=== PATIENT | female | born 1945 | race Caucasian/White ===

== ENCOUNTER 2022-12-20 00:01 | Inpatient (IN) | payer MEDICARE, OTHER ==
[~2022-12-20] VITALS: Ht 157.5 cm; Wt 93.0 kg
[2022-12-20] MEDS ORDERED: IV NORMAL SALINE 1000 ML BAG IV ONE (00:30)
[2022-12-20 00:53] LABS: HEMATOCRIT 40.5 % (31.2-41.9); MEAN CORPUSCULAR HEMOGLOBIN 25.6 uug (24.7-32.8); PLATELET COUNT (AUTO) 376 K/uL (179-408)
[2022-12-20 00:58] LABS: CREATININE 0.6 mg/dL (0.6-1.3); POTASSIUM 4.2 mmol/L (3.5-5.1)
[2022-12-20 01:03] LABS: BILIRUBIN,DIRECT 0.3 mg/dL (0.0-0.2); BILIRUBIN,TOTAL 0.9 mg/dL (0.2-1.0); TOTAL PROTEIN, SERUM 6.9 g/dL (6.4-8.2)
[2022-12-20 01:46] LABS: *BILIRUBIN,URIN NEGATIVE (NEGATIVE); *BLOOD, URINE 3+ (NEGATIVE); *CLARITY,URINE CLOUDY (CLEAR); *COLOR,URINE DARK YELLOW (YELLOW); *KETONES,URINE NEGATIVE (NEGATIVE); *UROBILINOGEN,URINE 0.2 E.U./dl (NORMAL); LEUKOCYTE ESTERASE ,URINE 3+ (NEGATIVE); NITRITE, URINE NEGATIVE (NEGATIVE); UGLUCOSE NEGATIVE (NEGATIVE)
[2022-12-20 01:50] LABS: BACTERIA,URINE MODERATE /HPF (NONE SEEN); SQUAMOUS EPITHELIAL CELL,UR FEW /HPF (NONE SEEN)
[2022-12-20] MEDS ORDERED: MAGNESIUM SULFATE/D5W 100 ML ONE ×2 (04:00→04:23)
[2022-12-20] MEDS: MAGNESIUM SULFATE/D5W 100 ML IV SCH ×2 (04:06→04:35)
[2022-12-20] MEDS ORDERED: DIPH25TA62 PO (05:06)
[2022-12-20] MEDS ORDERED: DOCU100T2 PO ×3 (05:07→05:10)
[2022-12-20] MEDS ORDERED: APIX2.5T PO (05:11)
[2022-12-20] MEDS ORDERED: HYDR-894 PO (05:12)
[2022-12-20] MEDS ORDERED: HYDR-3972 PO (05:13)
[2022-12-20] MEDS ORDERED: LEVO125T8 PO (05:19)
[2022-12-20] MEDS ORDERED: LIDO30AD10 TD (05:23)
[2022-12-20] MEDS ORDERED: LOSA50TA39 PO (05:24)
[2022-12-20] MEDS ORDERED: METO25TA6 PO (05:25)
[2022-12-20] MEDS ORDERED: MULT-213 PO (05:27)
[2022-12-20] MEDS ORDERED: ONDANSETRON 4 MG/2 ML VIAL ONE (05:27)
[2022-12-20] MEDS ORDERED: HYDR-3980 PO (05:28)
[2022-12-20] MEDS ORDERED: HYDROMORPHONE 1 MG/1 ML DISP.SYRIN ONE (05:28)
[2022-12-20] MEDS ORDERED: PIPERACILLIN/TAZO 4.5 GM VIAL IV ONE (05:28)
[2022-12-20] MEDS ORDERED: HYDROMORPHONE 1 MG/1 ML DISP.SYRIN IV ONE (05:30)
[2022-12-20] MEDS ORDERED: ONDANSETRON 4 MG/2 ML VIAL IV ONE (05:30)
[2022-12-20] MEDS ORDERED: PANT40TA49 PO ×2 (05:30)
[2022-12-20] MEDS ORDERED: BUDE10.22 IH (05:31)
[2022-12-20] MEDS ORDERED: TUBE5VIA2 ID (05:33)
[2022-12-20] MEDS ORDERED: PIPERACILLIN SODIUM/TAZOBACTAM 4.5 G in IV DEXTROSE 5% 50 ML IV SCH (06:00)
[2022-12-20] MEDS ORDERED: MAGNESIUM HYDROXIDE 30 ML LIQUID UDC PO PRN (07:00)
[2022-12-20] MEDS ORDERED: ACETAMINOPHEN 325 MG TABLET PO PRN (07:00)
[2022-12-20] MEDS ORDERED: ONDANSETRON 4 MG/2 ML VIAL IV PRN (07:00)
[2022-12-20] MEDS ORDERED: REMEDY ESSENTIAL ZINC PASTE 113 GM TP PRN (07:00)
[2022-12-20] MEDS ORDERED: FLEET ENEMA 133 ML BOTTLE RC ONE (07:00)
[2022-12-20] MEDS: CIPROFLOXACIN IV 400 MG in PREMIXED 1 EACH IV SCH ×2 (10:42→21:07)
[2022-12-20] MEDS: PANTOPRAZOLE SODIUM 40 MG TABLET.DR PO SCH (10:42)
[2022-12-20] MEDS: HYDROCODONE/APAP 5-325MG TABLET PO PRN ×2 (10:43→15:38)
[2022-12-20 11:00] VITALS: BP 135/47
[2022-12-20] MEDS: IV NS 1000 ML 1,000 ML IV PRN (11:05)
[2022-12-20] MEDS: LEVOTHYROXINE SODIUM 125 MCG TABLET PO SCH (12:14)
[2022-12-20] MEDS: LOSARTAN POTASSIUM 50 MG TABLET PO SCH (12:14)
[2022-12-20] MEDS: METOPROLOL TARTRATE 25 MG TABLET PO SCH ×2 (12:14→20:21)
[2022-12-20] MEDS: DOCUSATE SODIUM 100 MG CAPSULE PO SCH ×2 (12:14→20:21)
[2022-12-20] MEDS: MULTIVITAMINS,THERAPEUTIC TABLET PO SCH (12:14)
[2022-12-20] MEDS: APIXABAN 2.5 MG TABLET PO SCH ×2 (12:15→20:25)
[2022-12-20] MEDS: METRONIDAZOLE 500 MG/NS 100ML 500 MG in PREMIXED 1 EACH IV SCH ×2 (13:16→22:16)
[2022-12-20 16:36] VITALS: BP 122/60
[2022-12-20] MEDS: MORPHINE SULFATE 2 MG/1 ML DISP.SYRIN IV PRN (20:45)
[2022-12-20 20:49] VITALS: BP 173/63
[2022-12-21] MEDS: HYDROCODONE/APAP 5-325MG TABLET PO PRN ×4 (00:04→23:44)
[2022-12-21] MEDS ORDERED: methylPREDNISolone SOD SUCC 125 MG/2 ML VIAL IV ONE (03:30)
[2022-12-21] MEDS ORDERED: FAMOTIDINE. 20 MG/2 ML VIAL IV ONE (03:30)
[2022-12-21] MEDS ORDERED: diphenhydrAMINE 50 MG/1 ML VIAL IV ONE (03:30)
[2022-12-21 04:49] VITALS: BP 126/62
[2022-12-21] MEDS: LEVOTHYROXINE SODIUM 125 MCG TABLET PO SCH (06:09)
[2022-12-21] MEDS: PANTOPRAZOLE SODIUM 40 MG TABLET.DR PO SCH (06:09)
[2022-12-21] MEDS: IV NS 1000 ML 1,000 ML IV PRN ×2 (06:26→06:27)
[2022-12-21] MEDS ORDERED: PIPERACILLIN SODIUM/TAZOBACTAM 3.375 G in IV DEXTROSE 5% 50 ML IV SCH ×5 (06:45→14:00)
[2022-12-21 07:31] LABS: HEMATOCRIT 41.6 % (31.2-41.9); MEAN CORPUSCULAR HEMOGLOBIN 25.5 uug (24.7-32.8); MEAN CORPUSCULAR VOLUME 79.4 fL (75.5-95.3); PLATELET COUNT (AUTO) 338 K/uL (179-408)
[2022-12-21 07:44] LABS: CARBON DIOXIDE 29 mmol/L (21-32); CHLORIDE 102 mmol/L (98-107); CREATININE 0.7 mg/dL (0.6-1.3); GLUCOSE 143 mg/dL (74-106); PHOSPHOROUS 2.9 mg/dL (2.5-4.9); POTASSIUM 4.7 mmol/L (3.5-5.1); UREA NITROGEN, BLOOD 13 mg/dL (7-18)
[2022-12-21] MEDS: MULTIVITAMINS,THERAPEUTIC TABLET PO SCH (08:03)
[2022-12-21] MEDS: LOSARTAN POTASSIUM 50 MG TABLET PO SCH (08:04)
[2022-12-21] MEDS: DOCUSATE SODIUM 100 MG CAPSULE PO SCH ×2 (08:04→20:14)
[2022-12-21] MEDS: APIXABAN 2.5 MG TABLET PO SCH ×2 (08:04→20:14)
[2022-12-21] MEDS: METOPROLOL TARTRATE 25 MG TABLET PO SCH ×2 (08:04→16:49)
[2022-12-21] MEDS: LIDOCAINE 5% PATCH TD SCH ×2 (11:13→21:00)
[2022-12-21 11:49] VITALS: BP 119/80
[2022-12-21 11:56] VITALS: BP 114/72
[2022-12-21] MEDS: PIPERACILLIN SODIUM/TAZOBACTAM 3.375 G in IV DEXTROSE 5% 100 ML IV SCH ×2 (13:10→21:16)
[2022-12-21] MEDS ORDERED: CLOTRIMAZOLE/BETAMET DIPROP CREAM 15 GM TUBE TOP PRN (14:00)
[2022-12-21 16:03] VITALS: BP 156/77
[2022-12-21] MEDS ORDERED: diphenhydrAMINE 50 MG/1 ML VIAL IV PRN (20:15)
[2022-12-21 22:50] VITALS: BP 141/54
[2022-12-22] MEDS ORDERED: LORAZEPAM 2 MG/1 ML VIAL IV ONE (01:15)
[2022-12-22] MEDS: IV NS 1000 ML 1,000 ML IV PRN (04:42)
[2022-12-22] MEDS: PIPERACILLIN SODIUM/TAZOBACTAM 3.375 G in IV DEXTROSE 5% 100 ML IV SCH ×3 (05:04→21:42)
[2022-12-22] MEDS: PANTOPRAZOLE SODIUM 40 MG TABLET.DR PO SCH (06:11)
[2022-12-22] MEDS: LEVOTHYROXINE SODIUM 125 MCG TABLET PO SCH (06:11)
[2022-12-22 07:54] LABS: HEMATOCRIT 39.2 % (31.2-41.9); MEAN CORPUSCULAR HEMOGLOBIN 25.5 uug (24.7-32.8); MEAN CORPUSCULAR VOLUME 79.1 fL (75.5-95.3); PLATELET COUNT (AUTO) 410 K/uL (179-408)
[2022-12-22 08:00] VITALS: BP 168/73
[2022-12-22 08:20] LABS: CARBON DIOXIDE 29 mmol/L (21-32); CHLORIDE 102 mmol/L (98-107); CREATININE 0.5 mg/dL (0.6-1.3); GLUCOSE 117 mg/dL (74-106); MAGNESIUM 1.9 mg/dL (1.8-2.4); PHOSPHOROUS 2.3 mg/dL (2.5-4.9); UREA NITROGEN, BLOOD 15 mg/dL (7-18)
[2022-12-22] MEDS: DOCUSATE SODIUM 100 MG CAPSULE PO SCH ×2 (09:24→21:37)
[2022-12-22] MEDS: LOSARTAN POTASSIUM 50 MG TABLET PO SCH (09:25)
[2022-12-22] MEDS: METOPROLOL TARTRATE 25 MG TABLET PO SCH ×2 (09:26→17:00)
[2022-12-22] MEDS: LIDOCAINE 5% PATCH TD SCH ×2 (09:26→21:37)
[2022-12-22] MEDS: MULTIVITAMINS,THERAPEUTIC TABLET PO SCH (09:26)
[2022-12-22] MEDS: APIXABAN 2.5 MG TABLET PO SCH ×2 (09:29→21:43)
[2022-12-22] MEDS ORDERED: LACTULOSE 20 G/30 ML LIQUID UDC PO ONE (11:00)
[2022-12-22] MEDS ORDERED: SORBITOL 70% SOLUTION 30 ML UDC PO ONE (11:00)
[2022-12-22 11:33] VITALS: BP 154/52
[2022-12-22] MEDS: HYDROCODONE/APAP 5-325MG TABLET PO PRN (12:35)
[2022-12-22 15:48] VITALS: BP 161/67
[2022-12-22] MEDS ORDERED: NEUTRA PHOS PACKET PO ONE (16:00)
[2022-12-22] MEDS: MORPHINE SULFATE 2 MG/1 ML DISP.SYRIN IV PRN (18:51)
[2022-12-22 20:00] VITALS: BP 144/72
[2022-12-23] VITALS (7 sets, daily range): BP systolic 49–140; BP diastolic 30–70
[2022-12-23] MEDS: PIPERACILLIN SODIUM/TAZOBACTAM 3.375 G in IV DEXTROSE 5% 100 ML IV SCH (06:08)
[2022-12-23] MEDS: PANTOPRAZOLE SODIUM 40 MG TABLET.DR PO SCH (06:08)
[2022-12-23] MEDS: LEVOTHYROXINE SODIUM 125 MCG TABLET PO SCH (06:08)
[2022-12-23 06:42] LABS: MEAN CORPUSCULAR HEMOGLOBIN 25.9 uug (24.7-32.8); MEAN CORPUSCULAR VOLUME 78.8 fL (75.5-95.3); PLATELET COUNT (AUTO) 605 K/uL (179-408)
[2022-12-23] MEDS: IV NS 1000 ML 1,000 ML IV PRN ×2 (07:21→17:22)
[2022-12-23 07:24] LABS: CREATININE 0.7 mg/dL (0.6-1.3); MAGNESIUM 1.6 mg/dL (1.8-2.4); PHOSPHOROUS 2.6 mg/dL (2.5-4.9); POTASSIUM 4.3 mmol/L (3.5-5.1)
[2022-12-23] MEDS: DOCUSATE SODIUM 100 MG CAPSULE PO SCH (08:30)
[2022-12-23] MEDS: LOSARTAN POTASSIUM 50 MG TABLET PO SCH (08:31)
[2022-12-23] MEDS: MULTIVITAMINS,THERAPEUTIC TABLET PO SCH (08:32)
[2022-12-23] MEDS: LIDOCAINE 5% PATCH TD SCH (08:32)
[2022-12-23] MEDS: METOPROLOL TARTRATE 25 MG TABLET PO SCH ×2 (08:32→17:00)
[2022-12-23] MEDS: APIXABAN 2.5 MG TABLET PO SCH (08:33)
[2022-12-23] MEDS: MAGNESIUM SULFATE/D5W 100 ML IV SCH ×2 (09:59→10:51)
[2022-12-23 11:16] LABS: ABG BASE EXCESS -1.3 mmol/L; ABG HCO3 20.7 mmol/L; ABG PCO2 28.6 mmHg (35.0-45.0); ABG PH 7.477 (7.350-7.450); ABG PO2 414.4 mmHg (75.0-100.0); ABG SITE RIGHT RADIAL; ABG TOTAL HEMOGLOBIN 16.6 G/dL (12.0-16.0); COHb 1.4 % (0.5-1.5); MetHb 0.5 % (0.0-1.5); O2Hb 97.8 % (94.0-97.0)
[2022-12-23 11:25] LABS: HEMATOCRIT 49.6 % (31.2-41.9); MEAN CORPUSCULAR HEMOGLOBIN 25.4 uug (24.7-32.8); MEAN CORPUSCULAR VOLUME 79.2 fL (75.5-95.3); PLATELET COUNT (AUTO) 669 K/uL (179-408)
[2022-12-23 11:39] LABS: CREATININE 1.3 mg/dL (0.6-1.3); POTASSIUM 4.6 mmol/L (3.5-5.1)
[2022-12-23] MEDS ORDERED: IV NS 1000 ML 1,000 ML IV ONE (13:00)
[2022-12-23] MEDS ORDERED: SWABABLE VALVE TRANSFER SET EA MC ONE (13:25)
[2022-12-23] MEDS ORDERED: IOHEXOL 300MG/ML 100 ML INFUS..BTL ONE (13:25)
[2022-12-23] MEDS ORDERED: IV NORMAL SALINE 250 ML IV ONE (13:25)
[2022-12-23 14:14] LABS: BILIRUBIN,DIRECT 1.1 mg/dL (0.0-0.2); BILIRUBIN,TOTAL 2.4 mg/dL (0.2-1.0)
[2022-12-23] MEDS ORDERED: PROPOFOL 100 ML IV PRN (15:15)
[2022-12-23] MEDS ORDERED: NOREPINEPHRINE BITARTRATE 8 MG in IV NORMAL SALINE 242 ML IV PRN ×2 (15:15→16:15)
[2022-12-23] MEDS ORDERED: VASOPRESSIN 40 UNIT in IV NORMAL SALINE 40 ML IV PRN (16:00)
[2022-12-23 16:10] LABS: ABG BASE EXCESS -20.2 mmol/L; ABG HCO3 10.9 mmol/L; ABG PCO2 45.5 mmHg (35.0-45.0); ABG PH 6.998 (7.350-7.450); ABG PO2 427.5 mmHg (75.0-100.0); ABG SITE LEFT RADIAL; COHb 0.7 % (0.5-1.5); MetHb 0.6 % (0.0-1.5); O2Hb 98.5 % (94.0-97.0); VENT MODE VENT - A/C16; VT, ABG 500 mL
[2022-12-23 16:39] LABS: HEMATOCRIT 39.6 % (31.2-41.9); MEAN CORPUSCULAR HEMOGLOBIN 25.4 uug (24.7-32.8); MEAN CORPUSCULAR VOLUME 82.8 fL (75.5-95.3); PLATELET COUNT (AUTO) 506 K/uL (179-408)
[2022-12-23] MEDS ORDERED: NOREPINEPHRINE BITARTRATE 32 MG in IV NORMAL SALINE 218 ML IV PRN (16:45)
[2022-12-23 16:55] LABS: CREATININE 0.7 mg/dL (0.6-1.3); POTASSIUM 4.3 mmol/L (3.5-5.1)
[2022-12-23 17:00] LABS: BILIRUBIN,TOTAL 1.3 mg/dL (0.2-1.0); TOTAL PROTEIN, SERUM 7.1 g/dL (6.4-8.2)
[2022-12-23] MEDS ORDERED: MICAFUNGIN SODIUM 100 MG in IV NORMAL SALINE 100 ML IV SCH (17:00)
[2022-12-23] MEDS ORDERED: MEROPENEM 1 G in IV NORMAL SALINE 100 ML IV SCH (18:00)
[2022-12-23] MEDS ORDERED: MORPHINE SULFATE PF IV DRIP 100 MG in IV DEXTROSE 5% 96 ML IV PRN (18:45)
[2022-12-23] MEDS ORDERED: LORAZEPAM 2 MG/1 ML VIAL IV PRN (18:45)
[2022-12-23] MEDS ORDERED: VANCOMYCIN IV 1,250 MG in IV DEXTROSE 5% 250 ML IV ONE (20:00)
== END 2022-12-23 23:00 | DRG 871 ==
LOC: ER 00:16 → MEDSURG3 08:56 → CCU 12-23 13:05
PROVIDERS: ADMIT Nurse Practitioner Family; ATTEND Nurse Practitioner Acute Care
PROC: 05HY33Z Insertion of Infusion Device into Upper Vein, Percutaneous Approach (ICD-10-PCS; 2022-12-20)
PROC: 5A1935Z Respiratory Ventilation, Less than 24 Consecutive Hours (ICD-10-PCS; principal; 2022-12-23)
PROC: 04HL33Z Insertion of Infusion Device into Left Femoral Artery, Percutaneous Approach (ICD-10-PCS; 2022-12-23)
PROC: 5A12012 Performance of Cardiac Output, Single, Manual (ICD-10-PCS; 2022-12-23)
PROC: 0BH17EZ Insertion of Endotracheal Airway into Trachea, Via Natural or Artificial Opening (ICD-10-PCS; 2022-12-23)
PROC: 06HY33Z Insertion of Infusion Device into Lower Vein, Percutaneous Approach (ICD-10-PCS; 2022-12-23)
DX: A41.9 Sepsis, unspecified organism (principal); J96.01 Acute respiratory failure with hypoxia; K57.33 Diverticulitis of large intestine without perforation or abscess with bleeding; N39.0 Urinary tract infection, site not specified; E87.1 Hypo-osmolality and hyponatremia; E87.20 Acidosis, unspecified; E44.1 Mild protein-calorie malnutrition; D68.59 Other primary thrombophilia; Z20.822 Contact with and (suspected) exposure to COVID-19; Z66 Do not resuscitate; K59.09 Other constipation; E83.52 Hypercalcemia; E88.09 Other disorders of plasma-protein metabolism, not elsewhere classified; J44.9 Chronic obstructive pulmonary disease, unspecified; I48.91 Unspecified atrial fibrillation; Z79.01 Long term (current) use of anticoagulants; E66.01 Morbid (severe) obesity due to excess calories; Z68.37 Body mass index [BMI] 37.0-37.9, adult; S72.002D Fracture of unspecified part of neck of left femur, subsequent encounter for closed fracture with routine healing; X58.XXXD Exposure to other specified factors, subsequent encounter; I10 Essential (primary) hypertension; E03.9 Hypothyroidism, unspecified; Z79.890 Hormone replacement therapy; Z79.899 Other long term (current) drug therapy; E86.1 Hypovolemia; E83.42 Hypomagnesemia
CPT/HCPCS: 36415; 36600; 71045; 71250; 82803; 83605; 83735; 84100; 85025; 86803; 86850; 86900; 86901; 87040; 87806; 92950; 93005; 94002; 99082-TC; A4663; G0378; J0744; J1170; J1200; J2060; J2185; J2248; J2270; J2274; J2405; J2543; J2930; J3475; J3490; J7040; J7050; Q9967